=== PATIENT | male | born 1975 | race American Indian/Alaskan Native ===

== ENCOUNTER 2021-09-08 21:50 | Emergency (ER) | payer MEDICAID ==
--- NOTE | 2021-09-09 16:34 | Emergency Department Report ---
ED General Adult HPI - General Chief complaint: Back Pain/Injury Stated complaint: CHEST/BACK PAIN PUI?: No Time Seen by Provider: 09/09/21 16:09 Source: patient Mode of arrival: Ambulatory Limitations: No Limitations - History of Present Illness Initial comments: This is a 45-year-old male with medical history of hypertension and also COVID last year with results of blood clot and ever since has been on Eliquis twice a day came in today with concerns of right lower leg pain that radiates to the right buttocks region. According patient 2 days ago he took some gummy. That may have THC in it and ever since he took it he still having chest pain and also palpitation also feeling very anxious. Current patient stated that he still feels very slightly anxious but not as bad as before. Patient current denies any fever chill night sweat dizziness blurred vision lightheadedness headache tinnitus ear pain runny nose sore throat loss of taste loss of smell shortness of breath cough abdominal pain nausea vomiting diarrhea constipation joint pain muscle pain new rash and heat or cold intolerance. Severity scale (0 -10): 3 - Related Data Previous Rx's Medication Instructions Recorded Last Taken Type Benzonatate [Tessalon Perles] 100 mg PO Q8HR #12 cap 09/09/21 Unknown Rx ED Review of Systems ROS: Stated complaint: CHEST/BACK PAIN Other details as noted in HPI Comment: All other systems reviewed and negative Constitutional: no symptoms reported Eyes: as per HPI ENT: as per HPI Respiratory: no symptoms reported, see HPI Cardiovascular: chest pain, palpitations Endocrine: no symptoms reported, see HPI Gastrointestinal: as per HPI, abdominal pain Genitourinary: as per HPI Musculoskeletal: as per HPI Skin: as per HPI Neurological: as per HPI Psychiatric: as per HPI Hematological/Lymphatic: as per HPI ED Past Medical Hx - Past Medical History Previous Medical History?: Yes Hx Hypertension: Yes Hx Deep Vein Thrombosis: Yes (PE) - Surgical History Past Surgical History?: Yes Additional Surgical History: PE - Social History Smoking Status: Never Smoker Substance Use Type: None - Medications Home Medications: Home Medications Medication Instructions Recorded Confirmed Last Taken Type Benzonatate [Tessalon Perles] 100 mg PO Q8HR #12 cap 09/09/21 Unknown Rx ED Physical Exam - General Limitations: No Limitations General appearance: alert, in no apparent distress - Head Head exam: Present: atraumatic, normocephalic, normal inspection - Eye Eye exam: Present: normal appearance, PERRL, EOMI Pupils: Present: normal accommodation - ENT ENT exam: Present: normal exam, mucous membranes moist - Neck Neck exam: Present: normal inspection, full ROM - Respiratory Respiratory exam: Present: normal lung sounds bilaterally. Absent: respiratory distress, wheezes, rales - Cardiovascular Cardiovascular Exam: Present: regular rate, normal rhythm, normal heart sounds - GI/Abdominal GI/Abdominal exam: Present: soft, distended. Absent: tenderness - Extremities Exam Extremities exam: Present: normal inspection, full ROM - Back Exam Back exam: Present: normal inspection, full ROM - Neurological Exam Neurological exam: Present: alert, altered, oriented X3, CN II-XII intact - Psychiatric Psychiatric exam: Present: normal affect, normal mood - Skin Skin exam: Present: normal color ED Course Vital Signs 09/09/21 09/09/21 09/09/21 01:20 15:56 15:57 Temperature 98.5 F 97.5 F L Pulse Rate 85 88 Respiratory 18 18 24 Rate Blood Pressure 119/66 Blood Pressure 120/68 [Left] O2 Sat by Pulse 92 92 Oximetry 09/09/21 09/09/21 09/09/21 16:00 16:16 16:30 Temperature Pulse Rate 92 H 86 86 Respiratory 15 22 18 Rate Blood Pressure 120/68 120/68 125/74 Blood Pressure [Left] O2 Sat by Pulse 92 94 93 Oximetry 09/09/21 09/09/21 09/09/21 16:46 17:00 17:16 Temperature Pulse Rate 87 87 82 Respiratory 31 H 13 28 H Rate Blood Pressure 125/74 123/69 123/69 Blood Pressure [Left] O2 Sat by Pulse 93 94 93 Oximetry 09/09/21 09/09/21 09/09/21 17:30 17:46 18:00 Temperature Pulse Rate 89 88 83 Respiratory 24 28 H 21 Rate Blood Pressure 116/71 116/71 116/66 Blood Pressure [Left] O2 Sat by Pulse 90 94 95 Oximetry 09/09/21 09/09/21 09/09/21 18:16 18:30 18:46 Temperature Pulse Rate 83 87 87 Respiratory 28 H 20 29 H Rate Blood Pressure 116/66 117/64 117/64 Blood Pressure [Left] O2 Sat by Pulse 94 95 93 Oximetry ED Medical Decision Making - Lab Data Result diagrams: 09/09/21 16:22 09/09/21 16:22 - EKG Data -: EKG Interpreted by Me (AT 1733 SINUS RHYTHM AT 77 BPM; NO ST ELEVATION OR DEPRESSION; NO WELLEN WA) EKG shows normal: sinus rhythm Rate: normal - Medical Decision Making delta trop negatiave; straigt leg raise positive; will give toradol. patient r equest cough suppressive medication will give tessalon. Critical care attestation.: If time is entered above; I have spent that time in minutes in the direct care of this critically ill patient, excluding procedure time. ED Disposition Clinical Impression: Non-cardiac chest pain, Substance use, Sciatica Disposition: HOME / SELF CARE / HOMELESS Is pt being admited?: No Does the pt Need Aspirin: No Condition: Stable Instructions: Nonspecific Chest Pain, Adult, Sciatica Prescriptions: Benzonatate [Tessalon Perles] 100 mg PO Q8HR #12 cap Referrals: PRIMARY CARE, [Primary Care Provider] - 3-5 Days Time of Disposition: 20:08
[2021-09-09 16:38] LABS: Hematocrit 46.1 % (35.5-45.6); Hemoglobin 14.7 gm/dl (11.8-15.2); Mean Corpuscular HGB Conc 32 % (32-34); Mean Corpuscular Volume 84 fl (84-94); Platelet Count 241 K/mm3 (140-440); Red Blood Count 5.48 M/mm3 (3.65-5.03); Red Cell Distribution Width 15.3 % (13.2-15.2)
--- NOTE | 2021-09-09 16:57 | XRay Report ---
CHEST 1 VIEW 09/09/2021 4:28 PM INDICATION / CLINICAL INFORMATION: CHEST PAIN. COMPARISON: None available. FINDINGS: SUPPORT DEVICES: None. HEART / MEDIASTINUM: No significant abnormality. LUNGS / PLEURA: No significant pulmonary abnormality. No significant pleural effusion. No pneumothora x. ADDITIONAL FINDINGS: No significant additional findings. IMPRESSION: 1. No acute abnormality of the chest. Signer Name: Iain Fernandez MD Signed: 09/09/2021 4:53 PM Workstation Name: [id number]
[2021-09-09 17:07] LABS: Alanine Aminotransferase 32 units/L (7-56); Albumin 3.8 g/dL (3.9-5); BUN/Creatinine Ratio 13; Blood Urea Nitrogen 14 mg/dL (9-20); Hemolysis Index 26
[2021-09-09 18:57] VITALS: BP 117/64
[2021-09-09] MEDS: KETOROLAC 30 MG/1 ML INJ IM ONE (21:00)
[2021-09-09] MEDS: BENZONATATE 100 MG CAP PO ONE (21:00)
--- NOTE | 2021-09-11 18:43 | Electrocardiograph Report ---
[facility] Test Date: 2021-09-08 Test Time: 22:16:42 Pat Name: ESTRELLITA VIGIL Department: Room: Gender: M [employer]: : 1975 Requested By: ABILIO MANE Order Number: [id number] Reading MD: Cortez Ying Measurements Intervals [place] Rate: 85 P: 58 [place]: 187 QRS: 0 QRSD: 97 T: 56 QT: QTc: 0 Interpretive Statements Sinus rhythm Low voltage, precordial leads Borderline inferior Q waves No previous ECG available for comparison Electronically Signed On 09-11-2021 18:42:58 EDT by Cortez Ying
--- NOTE | 2021-09-12 10:02 | Electrocardiograph Report ---
[facility] Test Date: 2021-09-09 Test Time: 17:33:01 Pat Name: ESTRELLITA VIGIL Department: Room: Gender: M Drapery Hand: NURSE : 1975 Requested By: MARCOS GREER Order Number: [id number] Reading MD: Cortez Ying Measurements Intervals [place] Rate: 77 P: 52 [place]: 209 QRS: 14 QRSD: 100 T: 84 QT: QTc: 0 Interpretive Statements Sinus rhythm Borderline prolonged [place] interval Low voltage, precordial leads Nonspecific T abnrm, anterolateral leads Compared to ECG 09/08/2021 22:16:42 No significant change Electronically Signed On 09-12-2021 10:02:37 EDT by Cortez Ying
== END 2021-09-09 18:00 | disposition home or self-care (01) ==
LOC: ED 21:50
DX: R07.9 Chest pain, unspecified (principal); F19.90 Other psychoactive substance use, unspecified, uncomplicated; M54.30 Sciatica, unspecified side; I10 Essential (primary) hypertension
CPT/HCPCS: 36415; 71045; 80053; 82550; 83735; 84484; 85027; 85379; 93005; 96372; 99284; J1885; 99283